=== PATIENT | male | born 1935 | race Caucasian/White ===

== ENCOUNTER 2023-06-15 15:01 | Emergency (ER) | payer MEDICARE, OTHER ==
[2023-06-15] MEDS ORDERED: Sodium Chloride 0.9% 10 ML Syringe FLUSH PRN (15:17)
[2023-06-15 15:35] LABS: BASOPHILS PERCENT AUTO 0.6 % (0.3-3.8); EOSINOPHILS ABSOLUTE AUTO 0.1 x10-3/uL (0.0-0.6); EOSINOPHILS PERCENT AUTO 1.5 % (0.1-6.8); HEMATOCRIT 46.6 % (38.3-50.1); HEMOGLOBIN 15.8 g/dL (12.9-17.7); LYMPHOCYTES ABSOLUTE AUTO 2.6 x10-3/uL (0.5-4.5); LYMPHOCYTES PERCENT AUTO 34.4 % (15.8-45.3); MEAN CORPUSCULAR HEMOGLOBIN 30.9 pg (27.0-33.3); MEAN CORPUSCULAR HGB CONC 33.9 g/dL (28.7-35.3); MEAN CORPUSCULAR VOLUME 91.2 fL (80.8-98.7); MEAN PLATELET VOLUME 7.9 fL (6.7-11.0); MONOCYTES ABSOLUTE AUTO 0.8 x10-3/uL (0.0-1.2); MONOCYTES PERCENT AUTO 10.1 % (5.5-15.2); NEUTROPHILS PERCENT AUTO 53.4 % (40.3-71.8); PLATELET COUNT,PLT 201 x10(3)uL (117-477); RED BLOOD CELL COUNT 5.11 x10(6)uL (3.90-5.90); RED CELL DISTRIBUTION WIDTH 13.6 % (12.4-15.0); WHITE BLOOD CELL COUNT,WBC 7.5 x10-3/uL (3.2-10.1)
[2023-06-15 15:37] LABS: BLOOD UREA NITROGEN,BUN 19 mg/dL (7-18); BUN/CREATININE RATIO 17.3 (9-20); CALCIUM 8.9 mg/dL (8.6-10.2); CARBON DIOXIDE,CO2 30 mmol/L (21-32); CHLORIDE,CL 102 mmol/L (100-110); CREATININE 1.1 mg/dL (0.70-1.30); EST CRCL DRUG DOSING (CG) 46.64 mL/min; ESTIMATED GFR 65 mL/min (>60); GLUCOSE RANDOM 113 mg/dL (80-116); POTASSIUM,K 4.6 mmol/L (3.5-5.3); SODIUM,NA 134 mmol/L (135-145)
[2023-06-15 15:42] LABS: INR 1.01 (1.00-1.24); PROTHROMBIN TIME 10.5 sec (9.0-11.1)
[2023-06-15 15:43] LABS: A/G RATIO 0.9; ALANINE AMINOTRANSFERASE,ALT 19 U/L (12-36); ALBUMIN 3.2 g/dL (3.2-4.6); ALKALINE PHOSPHATASE 49 IU/L (56-112); ASPARTATE AMNIOTRANSFERASE,AST 9 IU/L (5-25); BILIRUBIN TOTAL 0.5 mg/dL (0.1-1.3); PROTEIN TOTAL,TP 6.7 g/dL (6.0-8.0)
[2023-06-15 15:44] LABS: PTT,PARTIAL THROMBOPLSTIN TIME 24.2 SECONDS (24.4-33.2)
[2023-06-15] MEDS ORDERED: Aspirin 81 MG Tab.Chew PO ONE (16:45)
== END 2023-06-15 17:40 ==
LOC: FB.ED 15:01
DX: I48.91 Unspecified atrial fibrillation (principal); I48.92 Unspecified atrial flutter; N40.0 Benign prostatic hyperplasia without lower urinary tract symptoms; G89.29 Other chronic pain; M54.50 Low back pain, unspecified; R20.0 Anesthesia of skin; E78.5 Hyperlipidemia, unspecified; E78.00 Pure hypercholesterolemia, unspecified; I10 Essential (primary) hypertension; Z86.16 Personal history of COVID-19; Z88.5 Allergy status to narcotic agent; Z79.899 Other long term (current) drug therapy
CPT/HCPCS: 36415; 70450; 71045; 80053; 82947; 84484; 85025; 85610; 85730; 93005; 93010; 99285; A9270